=== PATIENT | male | born 1995 | race Caucasian/White ===

== ENCOUNTER 2018-09-18 18:27 | Emergency (ER) | payer SELFPAY ==
[~2018-09-18 18:27] MED LIST: ACE3 PO; ALBU8.5H IH; AMOX500T10 PO; ASCO-191 PO; AZIT500T47 PO; KET10 PO; NO ROUTINE MEDS; ONDA4TAB PO
[2018-09-18 18:32] VITALS: BP 116/65
--- NOTE | 2018-09-18 18:41 | ER Report ---
History and Physical Time Seen By MD: 18:32 Hx. of Stated Complaint: cut arm punching mirror for music video HPI/ROS CHIEF COMPLAINT: Laceration HISTORY OF PRESENT ILLNESS: This is a 23-year-old male who presents to the emergency room for laceration. Patient states that about 15-20 minutes prior to arrival, he was filming a music feel, he decided to punch through a mirror for the video, as he punched through the Margie using his left arm, he has several small little abrasions to the fist, and has a large laceration to the medial forearm and the lateral forearm. Bleeding is controlled. CMS is intact, he's got good flexion and extension. The wounds do appear to be down to the fascia h owever no tendon involvement noted this time. He denies any other complaints at this time, no chest pain or shortness of breath. No nausea or vomiting. No recent illnesses. REVIEW OF SYSTEMS: Constitutional: No fever, no chills. Eyes: No discharge. ENT: No sore throat. Cardiovascular: No chest pain, no palpitations. Respiratory: No cough, no shortness of breath. Gastrointestinal: No abdominal pain, no vomiting. Genitourinary: No hematuria. Musculoskeletal: As above. Skin: As above. Neurological: No headache. Allergies: Coded Allergies: No Known Drug Allergies (Unverified , 04/20/16) Home Meds Active Scripts Cephalexin 500 Mg Tab (KEFLEX 500 MG TAB) 500 Mg Tablet, 500 MG PO Q12H for 5 Days, #10 TAB 0 Refills Prov:CARSON MOBLEY [employer] 09/18/18 Discontinued Reported Medications Ascorbic Acid (VITAMIN C) 1,000 Mg Tablet, 2 TAB PO DAILY 04/20/16 Discontinued Scripts Albuterol Sulfate 90 Mcg/Act (PROAIR HFA 90 MCG/ACT) 8.5 Gm Hfa.aer.ad, 1-2 PUFF IH 3-4XD for wheezing, #1 INHALER 2 Refills Prov:WAI WATSON MD 05/08/16 Azithromycin (AZITHROMYCIN) 500 Mg Tablet, 1 TAB PO QDAY, #3 TAB 1 Refill Prov:WAI WATSON MD 05/08/16 Past Medical/Surgical History The patient has a past medical and surgical history of arrhythmia, asthma, vapes. Reviewed Nurses Notes: Yes Hx Smoking: Yes Smoking Status: Current: Every Day Smoker Constitutional Vital Sign - Last 24 Hours 09/18/18 18:32 Temp 98.0 Pulse 67 Resp 18 B/P (MAP) 116/65 Pulse Ox 96 O2 Delivery Room Air Physical Exam General Appearance: The patient is alert, has no immediate need for airway protection and no signs of toxicity. Eyes: Pupils equal and round no pallor or injection. ENT, Mouth: Mucous membranes are moist. Respiratory: There are no retractions, lungs are clear to auscultation. Cardiovascular: Regular rate and rhythm. No murmurs, clicks or rubs. Gastrointestinal: Abdomen is soft and non tender, no masses, bowel sounds normal. Neurological: Alert and oriented 4. Moving all extremities. Following all commands. No focal neuro deficits per Skin: 6.5 cm x 2 cm laceration on the dorsal aspect of the left forearm, 3 cm x 2 cm laceration to the palmar side. CMS intact, bleeding is controlled. Musculoskeletal: Neck is supple non tender. Extremities are nontender, nonswollen and have full range of motion. DIFFERENTIAL DIAGNOSIS: After history and physical exam differential diagnosis was considered for tendon laceration, foreign body, laceration. Medical Decision Making EKG/Imaging Imaging PATIENT NAME: Samuel Acosta : 1995 MR: [id number] V: [id number] EXAM DATE: ORDERING PHYSICIAN: CARSON MOBLEY TECHNOLOGIST: Location: [facility] [place] Patient: Samuel Acosta : 1995 Visit/Account:[id number] Date of Sevice: 09/18/2018 EXAMINATION: Left hand 3 views HISTORY: Punched a mirror. Evaluate for foreign body. COMPARISON: None. FINDINGS: There are 2 punctate densities projecting along the lateral soft tissues of the third finger adjacent to the distal shaft of the proximal phalanx and mid shaft of the middle phalanx. No other radiopaque foreign body is visualized. Bones of the left hand demonstrate normal alignment. No evidence of fracture or dislocation. Normal mineralization. IMPRESSION: Punctate foreign bodies project along the soft tissues of the left third finger. These could represent some foreign body debris along the skin surface but should be correlated clinically and with site of the patient's injuries. Report Dictated By: Parvez Quach MD at 09/18/2018 7:20 PM Report E-Signed By: Parvez Quach MD at 09/18/2018 7:23 PM WSN:[id number] PATIENT NAME: Samuel Acosta : 1995 MR: [id number] V: [id number] EXAM DATE: ORDERING PHYSICIAN: CARSON MOBLEY TECHNOLOGIST: Location: [facility] [place] Patient: Samuel Acosta : 1995 Visit/Account:[id number] Date of Sevice: 09/18/2018 EXAMINATION: Left forearm 2 views. HISTORY: Punched a mirror. Evaluate for foreign body. COMPARISON: None. FINDINGS: The left radius and ulna appear radiographically intact, without evidence of fracture. Normal alignment at the wrist and elbow. Normal mineralization. Soft tissue swelling and laceration along the left forearm. No radiopaque foreign body. IMPRESSION: Soft tissue swelling and laceration along the left forearm. No underlying fracture or radiopaque foreign body. Report Dictated By: Parvez Quach MD at 09/18/2018 7:19 PM Report E-Signed By: Parvez Quach MD at 09/18/2018 7:20 PM WSN:[id number] ED Course/Re-evaluation ED Course The patient was admitted to room. A history and physical obtained. Differential diagnoses were considered. X-rays of the forearm were obtained, no foreign bodies identified in the form x-ray, the foreign body that was noted in the hand x-ray was removed, the hand was thoroughly irrigated and cleansed. The forearm wounds were copiously irrigated with normal saline and Shur-Clens. The complex wound was repaired as noted below. Patient tolerated very well. He was placed in a forearm splint for comfort. He was given 1 hydrocodone in the emergency department. He was given a take home pack for hydrocodone. He was started on Keflex in the ER, a prescription was sent to the patient's pharmacy. He was instructed to monitor closely for signs of infection, return to the ER for any other concerns or follow-up with his primary care provider for suture removal. The patient had no other questions or concerns at this time and discharged home. Procedure: Laceration repair. Verbal consent was obtained from the patient. The 6.5 cm x 2 cm laceration on the dorsal aspect of the left forearm, 3 cm x 2 cm laceration to the palmar side of the forearm was anesthetized in the usual fashion. The wound was scrubbed, draped and explored to its base with a gloved finger. There was subcutaneous and the fascia tissue involved. No tendon injury was identified. Normal flexion and extension of the left hand. The dorsal wound was repaired with 4, 4-0 Vicryl simple interrupted subcutaneous sutures, followed by 1, 5-0 simple interrupted suture along with 1 continuous interlocking suture. The palmar wound was repaired with 2, 4-0 Vicryl simple interrupted subcutaneous sutures, followed by 1 continuous interlocking suture. The wound repair was complex. The procedure was performed by myself. Decision to Disposition Date: Sep 18, 2018 Decision to Disposition Time: 20:15 Depart Departure Latest Vital Signs Vital Signs Date Time Temp Pulse Resp B/P (MAP) Pulse Ox O2 Delivery O2 Flow Rate FiO2 09/18/18 18:32 98.0 67 18 116/65 96 Room Air Impression: Primary Impression: Laceration of forearm, left, complicated Condition: Improved Disposition: HOME OR SELF-CARE Referrals: WAI WATSON MD (PCP) 10 Days New Scripts Cephalexin 500 Mg Tab (KEFLEX 500 MG TAB) 500 Mg Tablet 500 MG PO Q12H for 5 Days, #10 TAB 0 Refills Prov: CARSON MOBLEY 09/18/18 Patient Instructions: Acute Wound Care (ED), Laceration (ED) Additional Instructions: Keep wound dry for 48 hours. Follow up with your primary care provider in the next 10 days to have sutures removed. Take the antibiotics as prescribed. Use the take home pack of hydrocodone as needed for severe pain. Monitor for signs of infection; redness, swelling, heat, discharge, increasing pain or red streaking. Take Tylenol or Ibuprofen as needed for pain. Return to the ER with any concerns. You may change dressing as needed. Problem Qualifiers Primary Impression: Laceration of forearm, left, complicated Encounter type: initial encounter Qualified Codes: S51.812A - Laceration without foreign body of left forearm, initial encounter CARSON MOBLEY Sep 18, 2018 18:40
[2018-09-18] MEDS ORDERED: DIPHTH/TETANUS/ACEL. PERTUSSIS IM ONLY ONE (18:45)
--- NOTE | 2018-09-18 19:27 | RADIOLOGY IMAGING REPORT ---
FACILITY: [facility] PATIENT NAME: Samuel Acosta : 1995 MR: [id number] V: [id number] EXAM DATE: ORDERING PHYSICIAN: CARSON MOBLEY TECHNOLOGIST: Location: [facility] [place] Patient: Samuel Acosta : 1995 Visit/Account:[id number] Date of Sevice: 09/18/2018 EXAMINATION: Left forearm 2 views. HISTORY: Punched a mirror. Evaluate for foreign body. COMPARISON: None. FINDINGS: The left radius and ulna appear radiographically intact, without evidence of fracture. Normal alignme nt at the wrist and elbow. Normal mineralization. Soft tissue swelling and laceration along the left forearm. No radiopaque foreign body. IMPRESSION: Soft tissue swelling and laceration along the left forearm. No underlying fracture or ra diopaque foreign body. Report Dictated By: Parvez Quach MD at 09/18/2018 7:19 PM Report E-Signed By: Parvez Quach MD at 09/18/2018 7:20 PM WSN:[id number]
--- NOTE | 2018-09-18 19:30 | RADIOLOGY IMAGING REPORT ---
FACILITY: [facility] [place] PATIENT NAME: Samuel Acosta : 1995 MR: [id number] V: [id number] EXAM DATE: ORDERING PHYSICIAN: CARSON MOBLEY TECHNOLOGIST: Location: [facility] Patient: Samuel Acosta : 1995 Visit/Account:[id number] Date of Sevice: 09/18/2018 EXAMINATION: Left hand 3 views HISTORY: Punched a mirror. Evaluate for foreign body. COMPARISON: None. FINDINGS: There are 2 punctate densities projecting along the lateral soft tissues of the third finger adjacent to the distal shaft of the proximal phalanx and mid shaft of the middle phalanx. No other radiopaque foreign body is visualized. Bones of the left hand demonstrate normal alignment. No evidence of fracture or dislocation. Normal m ineralization. IMPRESSION: Punctate foreign bodies project along the soft tissues of the left third finger. These could represen t some foreign body debris along the skin surface but should be correlated clinically and with site o f the patient's injuries. Report Dictated By: Parvez Quach MD at 09/18/2018 7:20 PM Report E-Signed By: Parvez Quach MD at 09/18/2018 7:23 PM WSN:[id number]
[2018-09-18] MEDS ORDERED: CEPHALEXIN MONO 500 MG CAP PO ONE (20:20)
[2018-09-18] MEDS ORDERED: CEPH500T7 PO (20:22)
[2018-09-18] MEDS ORDERED: APAP/HYDROCODONE 325/5 TAB PO ONE (20:25)
[2018-09-18] MEDS ORDERED: ACET/HYDROC 5/325MG TH ER ONLY 2 TAB/BOTTLE PO ONE (20:25)
== END 2018-09-18 20:35 | disposition home or self-care (01) ==
LOC: ER 18:36
DX: S41.112A Laceration without foreign body of left upper arm, initial encounter (principal)
CPT/HCPCS: 90715; 99284